=== PATIENT | male | born 1975 | race Two or more races ===

== ENCOUNTER 2017-01-11 14:58 | Emergency (ER) | payer MEDICARE, MEDICAID ==
[~2017-01-11] VITALS: Ht 162.6 cm; Wt 81.6 kg
[2017-01-11] MEDS ORDERED: DIAZEPAM 10 MG TABLET PO ONE (15:30)
[2017-01-11] MEDS ORDERED: BENZTROPINE MESYLATE (1 MG) 1 MG TABLET PO ONE (15:30)
[2017-01-11] MEDS ORDERED: DIAZEPAM 5 MG TABLET ONE (15:33)
[2017-01-11] MEDS ORDERED: BENZTROPINE MESYLATE (1 MG) 1 MG TABLET ONE ×2 (15:33→15:34)
[2017-01-11] MEDS ORDERED: diphenhydrAMINE HCL 50 MG CAPSULE PO ONE (17:00)
[2017-01-11] MEDS ORDERED: diphenhydrAMINE HCL 50 MG CAPSULE ONE (17:03)
[2017-01-11 17:21] LABS: BASOPHILS % (AUTO) 0.5 % (0.0-2.0); DIFF TOTAL % 100 %; EOSINOPHILS % (AUTO) 0.5 % (0.0-6.0); HEMATOCRIT 47 % (39-51); HEMOGLOBIN 16.5 g/dL (13.5-17.5); LYMPHOCYTES # (AUTO) 1.3 /CMM (0.8-4.8); LYMPHOCYTES % (AUTO) 16.5 % (20.0-44.0); MEAN CORPUSCULAR HEMOGLOBIN 32 PG (26.0-33.0); MEAN CORPUSCULAR HGB CONC 35 g/dl (31.0-36.0); MEAN CORPUSCULAR VOLUME 92 fL (80-96); MONOCYTES # (AUTO) 0.5 /CMM (0.1-1.30); MONOCYTES % (AUTO) 6.2 % (2.0-12.0); NEUTROPHILS # (AUTO) 6.1 /CMM (1.8-8.9); NEUTROPHILS % (AUTO) 76.3 % (43.0-81.0); PLATELET COUNT (AUTO) 326 /CMM (150-450); RED BLOOD CELL COUNT(AUTO) 5.17 MIL/uL (4.5-6.0)
[2017-01-11 17:29] LABS: ANION GAP 12 (5-14); CALCIUM, SERUM 8.9 mg/dL (8.5-10.1); CARBON DIOXIDE 28 mmol/L (21-32); CHLORIDE 105 mmol/L (98-107); CREATININE 0.8 mg/dL (0.6-1.3); GFR 107 mL/min (>60); GLUCOSE 121 mg/dL (74-106); POTASSIUM 3.6 mmol/L (3.5-5.1); SODIUM SERUM 142 mmol/L (136-145); UREA NITROGEN, BLOOD 12 mg/dL (7-18)
[2017-01-11 17:36] LABS: ALANINE AMINOTRANSFERASE 40 U/L (12-78); ALBUMIN 4.3 g/dL (3.4-5.0); ASPARTATE AMINOTRANSFERASE 34 U/L (15-37); BILIRUBIN,DIRECT 0.1 mg/dL (0.0-0.2); BILIRUBIN,TOTAL 0.6 mg/dL (0.2-1.0); INDIRECT BILIRUBIN 0.5 mg/dL (0.0-1.1)
[2017-01-11 17:37] LABS: ACETAMINOPHEN < 2 ug/ml (10-30)
[2017-01-11 17:55] LABS: KETONES,URINE 2+ (NEGATIVE); LEUKOCYTE ESTERASE ,URINE NEGATIVE (NEGATIVE); PH,URINE 5.5 (5.0-8.0)
[2017-01-11 17:57] LABS: ADD UA MICROSCOPIC YES
[2017-01-11 18:02] LABS: ADD URINE CULTURE NO; WBC,URINE 0-2 /HPF (0-3)
[2017-01-11 18:04] LABS: CANNABINOID, URINE NEGATIVE (NEGATIVE); PHENCYCLIDINE SCREEN,URINE NEGATIVE (NEGATIVE)
[2017-01-11 19:27] VITALS: BP 115/64
== END 2017-01-11 19:28 | disposition home or self-care (01) ==
LOC: ER 15:00
DX: F41.9 Anxiety disorder, unspecified (principal); R45.851 Suicidal ideations; G24.01 Drug induced subacute dyskinesia; G25.71 Drug induced akathisia; G25.5 Other chorea; K21.9 Gastro-esophageal reflux disease without esophagitis; F20.9 Schizophrenia, unspecified
CPT/HCPCS: 36415; 80048; 80076; 80305; 81001; 85025; 99284; A4606; G0480 ×2; Q0163; 81000-TC; G6039-TC; Z7610

== ENCOUNTER 2019-11-15 13:46 | Emergency (ER) | payer MEDICARE, MEDICAID ==
[~2019-11-15] VITALS: Ht 165.1 cm; Wt 108.9 kg
--- NOTE | 2019-11-15 13:59 | NUR ---
PT AAOX4. AMBULATORY WITH STEADY GAIT. BIBSELF, C/O cough x 7 days; + phlegm; greenish sputum secretion reported by patient. upon assessment RR even and unlabored, vss, no acute distress noted. Awaiting MD for eval. Will continue to monitor.
--- NOTE | 2019-11-15 14:30 | NUR ---
XRAY AT BEDSIDE
[2019-11-15] MEDS ORDERED: ALBUTEROL FS 2.5 MG/3 ML VIAL.NEB NEB ONE (15:30)
--- NOTE | 2019-11-15 15:30 | NUR ---
RT AT BEDSIDE FOR BREATHING TREATMENT
[2019-11-15] MEDS ORDERED: ALBUTEROL FS 2.5 MG/3 ML VIAL.NEB ONE (15:38)
[2019-11-15 16:17] VITALS: BP 132/88
--- NOTE | 2019-11-15 16:17 | NUR ---
Patient discharged to home in stable condition. Written and verbal after care instructions given. Patient verbalizes understanding of instruction and RX. RR even and unalbored. VSS. PT ambulatory with a steady gait.
== END 2019-11-15 16:19 | disposition home or self-care (01) ==
LOC: ER 13:48
DX: J40 Bronchitis, not specified as acute or chronic (principal); K21.9 Gastro-esophageal reflux disease without esophagitis; Z90.49 Acquired absence of other specified parts of digestive tract
CPT/HCPCS: 71045-TC

== ENCOUNTER 2019-11-20 11:40 | Emergency (ER) | payer MEDICARE, OTHER ==
[~2019-11-20] VITALS: Ht 165.1 cm; Wt 111.1 kg
[2019-11-20 12:50] VITALS: BP 132/89
--- NOTE | 2019-11-20 12:51 | NUR ---
Patient discharged to home in stable condition. Written and verbal after care instructions given. Patient verbalizes understanding of instruction.
== END 2019-11-20 12:51 | disposition home or self-care (01) ==
LOC: ER 11:43
DX: R05 Cough (principal); K21.9 Gastro-esophageal reflux disease without esophagitis; F41.9 Anxiety disorder, unspecified; F31.9 Bipolar disorder, unspecified; F20.9 Schizophrenia, unspecified; Z90.89 Acquired absence of other organs

== ENCOUNTER 2020-02-03 09:57 | Emergency (ER) | payer MEDICAID, MEDICARE, OTHER ==
[~2020-02-03] VITALS: Ht 165.1 cm; Wt 113.5 kg
[2020-02-03 10:23] VITALS: BP 167/96
--- NOTE | 2020-02-03 10:23 | NUR ---
Patient discharged to home in stable condition. Written and verbal after care instructions given. Patient verbalizes understanding of instruction.
[2020-02-03] MEDS ORDERED: KETOROLAC TROMETHAMINE INJ 30 MG/ML VIAL IM ONE (10:30)
== END 2020-02-03 10:24 | disposition home or self-care (01) ==
LOC: ER 09:58
DX: M54.5 Low back pain (principal); I10 Essential (primary) hypertension; K21.9 Gastro-esophageal reflux disease without esophagitis; F41.9 Anxiety disorder, unspecified; F31.9 Bipolar disorder, unspecified; F20.9 Schizophrenia, unspecified; Z90.89 Acquired absence of other organs

== ENCOUNTER 2022-07-01 15:34 | Emergency (ER) | payer OTHER ==
[~2022-07-01] VITALS: Ht 162.6 cm; Wt 90.7 kg
--- NOTE | 2022-07-01 16:45 | NUR ---
BIBS "Started having Back pain bryson - NOT going away. " Denies UA symptoms. AMBULATORY, AAOX4, IN PAIN 06/11 PS
[2022-07-01] MEDS ORDERED: KETOROLAC TROMETHAMINE INJ 30 MG/ML VIAL IV ONE (17:00)
[2022-07-01] MEDS ORDERED: IV NS 0.9% 1,000 ML BAG IV ONE (17:00)
--- NOTE | 2022-07-01 17:08 | NUR ---
U/S TECH AT BED SIDE
--- NOTE | 2022-07-01 17:19 | NUR ---
URINE SAMPLE SENT TO LAB
[2022-07-01 17:38] LABS: BASOPHILS # (AUTO) 0.1 K/uL (0.0-0.2); BASOPHILS % (AUTO) 0.9 % (0.0-2.0); EOSINOPHILS % (AUTO) 3.2 % (0.0-6.0); HEMATOCRIT 47 % (39-51); HEMOGLOBIN 16.4 g/dL (13.5-17.5); LYMPHOCYTES # (AUTO) 1.6 K/uL (0.8-4.8); LYMPHOCYTES % (AUTO) 24.2 % (20.0-44.0); MEAN CORPUSCULAR HGB CONC 35 g/dl (31.0-36.0); MEAN CORPUSCULAR VOLUME 94 fL (80-96); MONOCYTES # (AUTO) 0.5 K/uL (0.1-1.30); MONOCYTES % (AUTO) 8.4 % (2.0-12.0); NEUTROPHILS # (AUTO) 4.1 K/uL (1.8-8.9); NEUTROPHILS % (AUTO) 63.3 % (43.0-81.0); PLATELET COUNT (AUTO) 162 K/uL (150-450); RED BLOOD CELL COUNT(AUTO) 5.04 MIL/uL (4.5-6.0); WHITE BLOOD COUNT (AUTO) 6.4 K/uL (4.3-11.0)
[2022-07-01 17:38] LABS: BILIRUBIN,URINE NEGATIVE (NEGATIVE); COLOR,URINE YELLOW (YELLOW); LEUKOCYTE ESTERASE ,URINE NEGATIVE (NEGATIVE); NITRITE, URINE NEGATIVE (NEGATIVE); PH,URINE 6.5 (5.0-8.0); PROTEIN,URINE NEGATIVE (NEGATIVE); UGLUCOSE NEGATIVE (NEGATIVE)
[2022-07-01] MEDS ORDERED: KETOROLAC TROMETHAMINE 15 MG/ML VIAL ONE (17:44)
[2022-07-01 17:45] LABS: CALCIUM, SERUM 8.5 mg/dL (8.5-10.1); CREATININE 0.7 mg/dL (0.6-1.3); POTASSIUM 3.7 mmol/L (3.5-5.1)
[2022-07-01 17:52] LABS: ALBUMIN 3.9 g/dL (3.4-5.0); BILIRUBIN,DIRECT 0.1 mg/dL (0.0-0.2); BILIRUBIN,TOTAL 0.6 mg/dL (0.2-1.0); TOTAL PROTEIN, SERUM 8.1 g/dL (6.4-8.2)
[2022-07-01] MEDS ORDERED: NAPR-1009 PO (19:02)
--- NOTE | 2022-07-01 19:14 | NUR ---
IV removed. Catheter intact and site benign. Pressure and 4x4 applied to site. No bleeding noted.Patient discharged to home in stable condition. Written and verbal after care instructions given. Patient verbalizes understanding of instruction.
[2022-07-01 21:50] VITALS: BP 150/95
== END 2022-07-01 19:14 | disposition home or self-care (01) ==
LOC: ER 15:37
DX: S29.012A Strain of muscle and tendon of back wall of thorax, initial encounter (principal); I10 Essential (primary) hypertension; R74.01 Elevation of levels of liver transaminase levels; N28.1 Cyst of kidney, acquired; E66.01 Morbid (severe) obesity due to excess calories; Z68.42 Body mass index [BMI] 45.0-49.9, adult; K21.9 Gastro-esophageal reflux disease without esophagitis; F41.9 Anxiety disorder, unspecified; F20.9 Schizophrenia, unspecified; Z90.89 Acquired absence of other organs; X50.0XXA Overexertion from strenuous movement or load, initial encounter; Y93.89 Activity, other specified; Y92.89 Other specified places as the place of occurrence of the external cause; Y99.8 Other external cause status
CPT/HCPCS: 99284; 96374; 76770; 96361; 85025; 80048; 80076; 81003; 36415; 82962; J7030; J1885

== ENCOUNTER 2023-01-28 14:58 | Emergency (ER) | payer OTHER ==
[~2023-01-28] VITALS: Ht 165.1 cm; Wt 115.7 kg
[~2023-01-28 14:58] MED LIST: NAPR-1009 PO
[2023-01-28 15:21] VITALS: BP 142/92
[2023-01-28] MEDS ORDERED: FLUT16SP16 BNOSTRILS (15:39)
[2023-01-28] MEDS ORDERED: IBUP-1957 PO (15:39)
[2023-01-28] MEDS ORDERED: FEXO1TAB11 PO (15:39)
--- NOTE | 2023-01-28 15:47 | NUR ---
Patient discharged to home in stable condition ambulating. Written and verbal after care instructions given. Patient verbalizes understanding of instruction.
== END 2023-01-28 15:48 | disposition home or self-care (01) ==
LOC: ER 15:05
DX: R51.9 Headache, unspecified (principal); R09.89 Other specified symptoms and signs involving the circulatory and respiratory systems; H57.89 Other specified disorders of eye and adnexa; I10 Essential (primary) hypertension; K21.9 Gastro-esophageal reflux disease without esophagitis; Z87.442 Personal history of urinary calculi; F41.9 Anxiety disorder, unspecified; F20.9 Schizophrenia, unspecified; F31.9 Bipolar disorder, unspecified; Z90.49 Acquired absence of other specified parts of digestive tract; Z79.899 Other long term (current) drug therapy

== ENCOUNTER 2023-03-21 16:51 | Emergency (ER) | payer OTHER ==
[~2023-03-21] VITALS: Ht 165.1 cm; Wt 120.2 kg
[~2023-03-21 16:51] MED LIST changes: +FEXO1TAB11 PO; +FLUT16SP16 BNOSTRILS; +IBUP-1957 PO
--- NOTE | 2023-03-21 19:00 | NUR ---
PT BIBSELF C/O RUQ ABDOMINAL PAIN "ON AND OFF" X 1 WEEK. PT DENIES NAUSEA, VOMITING, DIARRHEA. AAO X 4, BREATHING UNLABORED. PT ATTACHED TO PULSE OX AND MONITOR. AWAITING MD ALAMO.
--- NOTE | 2023-03-21 20:29 | NUR ---
URINE SPECIMEN SENT TO LAB
[2023-03-21 21:12] LABS: BILIRUBIN,URINE NEGATIVE (NEGATIVE); COLOR,URINE YELLOW (YELLOW); LEUKOCYTE ESTERASE ,URINE NEGATIVE (NEGATIVE); NITRITE, URINE NEGATIVE (NEGATIVE); PH,URINE 5.5 (5.0-8.0); PROTEIN,URINE NEGATIVE (NEGATIVE); UGLUCOSE NEGATIVE (NEGATIVE); UROBILINOGEN,URINE 0.2 EU/dL (0.2)
[2023-03-21 21:34] LABS: BASOPHILS # (AUTO) 0.1 K/uL (0.0-0.2); BASOPHILS % (AUTO) 0.8 % (0.0-2.0); EOSINOPHILS % (AUTO) 2.9 % (0.0-6.0); HEMATOCRIT 48 % (39-51); HEMOGLOBIN 16.7 g/dL (13.5-17.5); LYMPHOCYTES # (AUTO) 1.6 K/uL (0.8-4.8); LYMPHOCYTES % (AUTO) 25.3 % (20.0-44.0); MEAN CORPUSCULAR HGB CONC 35 g/dl (31.0-36.0); MEAN CORPUSCULAR VOLUME 94 fL (80-96); MONOCYTES # (AUTO) 0.5 K/uL (0.1-1.30); MONOCYTES % (AUTO) 7.4 % (2.0-12.0); NEUTROPHILS # (AUTO) 4.1 K/uL (1.8-8.9); NEUTROPHILS % (AUTO) 63.6 % (43.0-81.0); PLATELET COUNT (AUTO) 170 K/uL (150-450); RED BLOOD CELL COUNT(AUTO) 5.14 MIL/uL (4.5-6.0); WHITE BLOOD COUNT (AUTO) 6.4 K/uL (4.3-11.0)
[2023-03-21 21:45] LABS: CALCIUM, SERUM 9.5 mg/dL (8.5-10.1); CREATININE 0.7 mg/dL (0.6-1.3); POTASSIUM 3.8 mmol/L (3.5-5.1)
[2023-03-21 21:49] LABS: ALBUMIN 3.9 g/dL (3.4-5.0); BILIRUBIN,DIRECT 0.2 mg/dL (0.0-0.2); BILIRUBIN,TOTAL 0.7 mg/dL (0.2-1.0); TOTAL PROTEIN, SERUM 8.5 g/dL (6.4-8.2)
--- NOTE | 2023-03-21 23:00 | NUR ---
Patient discharged to home in stable condition. Written and verbal after care instructions given. Patient verbalizes understanding of instruction. Pt ambulatory with a steady gait
[2023-03-21] MEDS ORDERED: ONDA4TAB5 PO (23:08)
[2023-03-22 00:38] VITALS: BP 166/98
== END 2023-03-22 00:39 | disposition home or self-care (01) ==
LOC: ER 17:34
DX: K80.20 Calculus of gallbladder without cholecystitis without obstruction (principal); R74.01 Elevation of levels of liver transaminase levels; K21.9 Gastro-esophageal reflux disease without esophagitis; F41.9 Anxiety disorder, unspecified; F31.9 Bipolar disorder, unspecified; F20.9 Schizophrenia, unspecified; Z90.49 Acquired absence of other specified parts of digestive tract; Z79.899 Other long term (current) drug therapy
CPT/HCPCS: 36415; 76705-TC; 80048-TC; 80076-TC; 83690-TC; 85025-TC

== ENCOUNTER 2023-08-10 11:37 | Emergency (ER) | payer OTHER ==
[~2023-08-10] VITALS: Ht 165.1 cm; Wt 117.9 kg
[~2023-08-10 11:37] MED LIST changes: +ONDA4TAB5 PO
[2023-08-10 12:28] VITALS: BP 160/109; TEMP 98.8
[2023-08-10 15:02] VITALS: O2SAT 100
== END 2023-08-10 14:45 | disposition home or self-care (01) ==
LOC: ER 11:46
DX: J06.9 Acute upper respiratory infection, unspecified (principal); I10 Essential (primary) hypertension; K21.9 Gastro-esophageal reflux disease without esophagitis; F31.9 Bipolar disorder, unspecified; F20.9 Schizophrenia, unspecified; Z87.442 Personal history of urinary calculi; Z90.89 Acquired absence of other organs; Z20.822 Contact with and (suspected) exposure to COVID-19
CPT/HCPCS: C9803

== ENCOUNTER 2023-09-07 08:21 | Emergency (ER) | payer OTHER ==
[~2023-09-07] VITALS: Ht 165.1 cm; Wt 117.9 kg
[2023-09-07 08:29] VITALS: BP 163/102; TEMP 98.7; O2SAT 96
== END 2023-09-07 09:13 | disposition home or self-care (01) ==
LOC: ER 08:23
DX: I10 Essential (primary) hypertension (principal); R05.9 Cough, unspecified; E66.01 Morbid (severe) obesity due to excess calories; K21.9 Gastro-esophageal reflux disease without esophagitis; F41.9 Anxiety disorder, unspecified; F31.9 Bipolar disorder, unspecified; F20.9 Schizophrenia, unspecified; Z79.899 Other long term (current) drug therapy; Z90.49 Acquired absence of other specified parts of digestive tract

== ENCOUNTER 2025-08-17 01:05 | Emergency (ER) | payer MEDICARE, OTHER ==
[~2025-08-17] VITALS: Ht 167.6 cm; Wt 122.0 kg
[2025-08-17 02:57] VITALS: BP 147/89; TEMP 98.7; O2SAT 97
[2025-08-17] MEDS ORDERED: LORAZEPAM 1 MG TABLET ONE (03:08)
[2025-08-17] MEDS: LORAZEPAM 1 MG TABLET PO ONE (03:09)
== END 2025-08-17 03:34 | disposition home or self-care (01) ==
LOC: ER 01:16
DX: F41.9 Anxiety disorder, unspecified (principal); R06.02 Shortness of breath; I10 Essential (primary) hypertension; F31.9 Bipolar disorder, unspecified; F20.9 Schizophrenia, unspecified; Z79.1 Long term (current) use of non-steroidal anti-inflammatories (NSAID); Z87.442 Personal history of urinary calculi; Z90.49 Acquired absence of other specified parts of digestive tract